=== PATIENT | female | born 1995 | race Caucasian/White ===

== ENCOUNTER 2016-07-10 16:24 | Emergency (ER) | payer BC, OTHER ==
[2016-07-10] MEDS ORDERED: FLAGYL500 M1 PO (16:59)
[2016-07-10 18:05] LABS: BASO % 0.1 % (0-2); EOS % 0.1 % (0-7); HCT-HEMATOCRIT 43.7 % (34.0-49.0); HGB-HEMOGLOBIN 14.7 gm/dl (12.0-15.5); IMMATURE GRANULOCYTES ABSOLUTE 0.03 tho/cmm (0-0.03); IMMATURE GRANULOCYTES PERCENT 0.2 % (0-0.3); LYMPH % 4.8 % (20-45); LYMPH ABSOLUTE COUNT 0.8 tho/cmm (0.8-4.5); MCH (MEAN CORPUSCULAR HGB) 28.3 pg (28.0-32.0); MCHC MEAN CORPUSCULAR HGB CONC 33.6 % (32.0-36.0); MEAN PLATELET VOLUME 10.1 cmc (9.4-12.4); MONO % 6.1 % (0-12); MONOCYTE ABSOLUTE COUNT 1.1 tho/cmm (0.0-1.2); NEUTROPHIL ABSOLUTE COUNT 15.6 tho/cmm (1.6-8.0); NEUTROPHIL-AUTOMATED 15.6 tho/cmm (1.6-8.0); NEUTROPHILS % 88.7 % (40-80); PLATELET COUNT 218 tho/cmm (150-450); RED CELL DISTRIBUTION WIDTH 12.3 % (12.4-16.4); WHITE BLOOD COUNT 17.6 tho/cmm (4.0-10.0)
[2016-07-10 18:09] LABS: PREGNANCY-SERUM NEGATIVE (NEGATIVE)
[2016-07-10 18:13] LABS: ALB/GLOB RATIO 0.9 (0.8-2.0); ALBUMIN 3.7 g/dl (3.5-5.0); ALKALINE PHOSPHATASE 48 U/L (33-138); ALT/SGPT 17 U/L (12-78); ANION GAP 15 mmol/L (0-20); AST/SGOT 18 U/L (10-40); BILIRUBIN,TOTAL 0.8 mg/dl (0-1.5); BLOOD UREA NITROGEN 12 mg/dl (6-24); CALCIUM 8.8 mg/dl (8.5-10.5); CARBON DIOXIDE-VENOUS 24 mmol/L (22-32); CHLORIDE 102 mmol/l (96-110); CREATININE 1.14 mg/dl (0.50-1.10); GLUCOSE 88 mg/dL (70-110); LIPASE 153 U/L (73-393); POTASSIUM 3.9 mmol/L (3.7-5.1); SODIUM 137 mmol/L (135-145); eGFR VALUE FOR BLACK 80 mL/Min
[2016-07-10] MEDS ORDERED: NORCO 5-325 TA1 EACH PO (20:41)
[2016-07-10] MEDS ORDERED: ZOFRAN4 M2 PO (20:43)
[2016-07-10 20:46] LABS: URINE BILIRUBIN NEGATIVE (NEG); URINE BLOOD NEGATIVE (NEG); URINE GLUCOSE (UA) NEGATIVE (NEG); URINE KETONE LARGE (NEG); URINE LEUKOCYTE ESTERASE POSITIVE (NEG); URINE NITRITE NEGATIVE (NEG); URINE PROTEIN SMALL (NEG)
[2016-07-10 20:48] LABS: URINE APPEARANCE CLEAR; URINE COLOR YELLOW
[2016-07-10 20:55] LABS: URINE EPITHELIAL CELLS 0-1 /[HPF] (0-10); URINE MUCUS 1+; URINE RBC 0 /[HPF] (0-5); URINE WBC 0-2 /[HPF] (0-5)
== END 2016-07-10 21:07 ==
LOC: EDMED 16:24
PROVIDERS: Physician Assistant
DX: R19.7 Diarrhea, unspecified (principal); R10.84 Generalized abdominal pain; Z86.19 Personal history of other infectious and parasitic diseases
CPT/HCPCS: J0500; J2270; J2405; J7030; Q9967